=== PATIENT | female | born 1965 | race Caucasian/White ===

== ENCOUNTER → 2017-09-15 | Outpatient (CLI) | payer BC ==
--- NOTE | 2017-09-15 12:56 | ECHOS ---
STRESS ECHOCARDIOGRAM DATE OF SERVICE: 09/15/2017 INDICATIONS: Abnormal EKG. MEDICATIONS: Imitrex, Catapres, Topamax. BASELINE HEART RATE: 85 BASELINE BLOOD PRESSURE: 104/60 MAXIMUM HEART RATE: 157 MAXIMUM BLOOD PRESSURE: 156/82 85% MPHR: 142 100% MPHR: 167 METS: 11.1 MAXIMUM STAGE REACHED: IV TOTAL EXERCISE TIME: 9 minutes and 30 seconds CLINICAL INFORMATION: STRESS DATA: Pretesting physical examination showed a heart rate of 85. Pressure is 104/60 mmHg. Baseline EKG showed sinus rhythm. The patient exercised on the treadmill according to Td protocol for a total of 9 minutes and 30 seconds and achieved 11.1 METs. Max heart rate was 157, which is about 94% of maximum predicted heart rate. Maximum blood pressure was 156/82 mmHg. Clinically the patient did not have any symptoms of chest pain or discomfort during the testing or in the recovery time. The EKG did not show any significant ST or T-wave abnormalities consistent with ischemia. ECHOCARDIOGRAM IMAGES: On echocardiogram images from parasternal long axis view, parasternal short axis view, apical 4 chamber and apical 2 chamber view were obtained as the baseline images, at the peak of the heart rate, as well as on recovery and the echocardiogram images showed good augmentation in the left ventricular systolic function without any evidence of wall motion abnormalities consistent with ischemia. CONCLUSION: 1. Excellent exercise capacity. 2. Normal EKG in response to exercise. 3. Normal echocardiogram in response to exercise. 4. Essentially normal stress echocardiogram for the patient. MMODL / IJN: [id number] /
== END | disposition home or self-care (01) ==
LOC: RADNMMAIN 09:17
PROVIDERS: ATTEND Family Medicine
DX: R94.31 Abnormal electrocardiogram [ECG] [EKG] (principal)
CPT/HCPCS: 93017; 93350

== ENCOUNTER → 2018-08-24 | Outpatient (CLI) | payer BC ==
--- NOTE | 2018-08-31 14:57 | MM ---
Reason for exam: screening (asymptomatic). Last mammogram was performed 2 years and 4 months ago. History: Patient has history of endometrial cancer at age 31 and has history of bilateral breast cancer. Took hormonal contraceptives for 7 years beginning at age 36. MG 3D Screening Mammo W/Cad Bilateral CC and MLO view(s) were taken. Prior study comparison: April 10, 2016, bilateral MG 3d screening mammo w/cad. March 10, 2013, bilateral digital screening mammo w/CAD. The breast tissue is heterogeneously dense. This may lower the sensitivity of mammography. No suspicious abnormality. No significant changes when compared with prior studies. ASSESSMENT: Negative, BI-RAD 1 RECOMMENDATION: Routine screening mammogram of both breasts in 1 year.
== END ==
LOC: RADMAMWWP 06:50
PROVIDERS: ATTEND Family Medicine
DX: Z12.31 Encounter for screening mammogram for malignant neoplasm of breast (principal)
CPT/HCPCS: 77063; 77067

== ENCOUNTER 2020-02-02 12:36 | Emergency (ER) | payer OTHER, BC ==
[2020-02-02] MEDS ORDERED: DIPH,PERTUS(ACELL)TETVAC-LF 0.5 ML VIAL IM ONE (12:44)
[2020-02-02] MEDS ORDERED: SODIUM CHLORIDE 0.9% 500 ML 500 ML IV STA (12:44)
[2020-02-02 12:47] LABS: Glucose,Whole Blood 104 mg/dL (75-99)
[2020-02-02 12:57] LABS: Basophils % (A) 1 %; Eosinophils # (A) 0.2 k/uL (0-0.7); Eosinophils % (A) 4 %; HCT 41.4 % (34.0-46.0); HGB 13.9 gm/dL (11.4-16.0); Lymphocytes # (A) 1.5 k/uL (1.0-4.8); Lymphocytes % (A) 24 %; MCH 33.6 pg (25.0-35.0); MCHC 33.5 g/dL (31.0-37.0); MCV 100.6 fL (80.0-100.0); Mean Platelet Volume 7.6; Monocytes # (A) 0.4 k/uL (0-1.0); Monocytes % (A) 6 %; Neutrophils # (A) 3.9 k/uL (1.3-7.7); Neutrophils % (A) 63 %; Platelet Count 293 k/uL (150-450); RBC 4.12 m/uL (3.80-5.40); RDW 11.9 % (11.5-15.5); WBC 6.1 k/uL (3.8-10.6)
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
--- NOTE | 2020-02-02 13:10 | XR ---
AP pelvis HISTORY: Trauma and pain Single frontal view of the pelvis. Bone mineralization is reduced. Joint spaces and alignment are within normal limits. Fallopian tubal ligation clips are present in the pelvis. IMPRESSION: No fracture or dislocation.
[2020-02-02 13:12] LABS: ALT 19 U/L (4-34); AST 34 U/L (14-36); African American GFR (CKD) 82 (>60 ml/min/1.73 sqM); Alcohol <10 mg/dL; Alkaline Phosphatase 53 U/L (38-126); Amylase 56 U/L (30-110); Anion Gap 4 mmol/L; Blood Urea Nitrogen 20 mg/dL (7-17); Calcium 9.2 mg/dL (8.4-10.2); Carbon Dioxide 27 mmol/L (22-30); Chloride 108 mmol/L (98-107); Glucose 105 mg/dL (74-99); Non-African American GFR(CKD) 71 (>60 ml/min/1.73 sqM); Potassium 4.1 mmol/L (3.5-5.1); Sodium 139 mmol/L (137-145); Total Bilirubin 0.4 mg/dL (0.2-1.3); Total Protein 6.6 g/dL (6.3-8.2)
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
[2020-02-02 13:21] VITALS: BP 152/100
[2020-02-02 13:21] LABS: Creatine Kinase 207 U/L (30-135)
[2020-02-02 13:22] LABS: Partial Thromboplastin Time 22.1 sec (22.0-30.0); Prothrombin Time 10.1 sec (9.0-12.0)
[2020-02-02 13:33] VITALS: PULSE 96; RESP 13; TEMP 98.6
[2020-02-02 13:34] LABS: Creatine Kinase MB 3.3 ng/mL (0.0-2.4); Troponin I <0.012 ng/mL (0.000-0.034)
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
[2020-02-02 14:23] LABS: Appearance,Urine Clear (Clear); Bilirubin,Urine Negative (Negative); Blood,Urine Negative (Negative); Color,Urine Light Yellow; Glucose,Urine (UA) Negative (Negative); Ketones,Urine Negative (Negative); Leukocyte Esterase,Urine Negative (Negative); Nitrite,Urine Negative (Negative); Protein,Urine Negative (Negative); Specific Gravity,Urine 1.033 (1.001-1.035); Urobilinogen,Urine <2.0 mg/dL (<2.0)
[2020-02-02 14:39] LABS: Amphetamine Screen,Urine Not Detected (NotDetected); Barbiturate Screen,Urine Not Detected (NotDetected); Benzodiazepines Screen,Urine Not Detected (NotDetected); Cocaine Screen,Urine Not Detected (NotDetected); Methadone Screen, Urine Not Detected (NotDetected); Opiate Screen,Urine Not Detected (NotDetected); Oxycodone Screen, Urine Not Detected (NotDetected); Phencyclidine Screen,Urine Not Detected (NotDetected); Tricyclic Antidepressant,Urine Not Detected (NotDetected); Urn Cannabinoid Scrn Not Detected (NotDetected)
== END 2020-02-02 14:42 | disposition home or self-care (01) ==
LOC: EC 12:36
DX: S80.11XA Contusion of right lower leg, initial encounter (principal); V69.49XA Driver of heavy transport vehicle injured in collision with other motor vehicles in traffic accident, initial encounter; Y93.89 Activity, other specified
CPT/HCPCS: 36415; 93005; 86900; 86901; 80053; 82150; 82550; 82553; 83605; 83690; 84484; 85025; 85610; 85730; 86850; 81003; 80306; 80320; 72170; 71045; 72125; 70450; 71260; 74177; 99285; Q9967

== ENCOUNTER → 2020-02-29 | Outpatient (CLI) | payer BC | END | disposition home or self-care (01) | LOC: LABWHC1 13:50 | PROVIDERS: ATTEND Family Medicine | DX: Z20.828 Contact with and (suspected) exposure to other viral communicable diseases (principal) | CPT/HCPCS: U0003; C9803 ==

== ENCOUNTER → 2020-07-24 | Outpatient (CLI) | payer BC | END | disposition home or self-care (01) | LOC: LABWHC1 13:44 | PROVIDERS: ATTEND Nurse Practitioner Family | DX: Z20.828 Contact with and (suspected) exposure to other viral communicable diseases (principal) | CPT/HCPCS: U0003; C9803 ==

== ENCOUNTER → 2021-01-18 | Outpatient (CLI) | payer BC ==
--- NOTE | 2021-01-18 11:18 | MM ---
Reason for exam: screening (asymptomatic). Last mammogram was performed 2 years and 5 months ago. History: Patient has history of endometrial cancer at age 31 and has history of bilateral breast cancer. Took hormonal contraceptives for 7 years beginning at age 36. Physical Findings: A clinical breast exam by your physician is recommended on an annual basis and results should be correlated with mammographic findings. MG Screening Mammo w CAD Bilateral CC and MLO view(s) were taken. Prior study comparison: August 24, 2018, bilateral MG 3d screening mammo w/cad. April 10, 2016, bilateral MG 3d screening mammo w/cad. There are scattered fibroglandular densities. There is no discrete abnormality. ASSESSMENT: Negative, BI-RAD 1 RECOMMENDATION: Routine screening mammogram of both breasts in 1 year.
== END | disposition home or self-care (01) ==
LOC: RADMAMWWP 07:36
PROVIDERS: ATTEND Family Medicine
DX: Z12.31 Encounter for screening mammogram for malignant neoplasm of breast (principal); Z85.3 Personal history of malignant neoplasm of breast
CPT/HCPCS: 77067

== ENCOUNTER → 2022-08-21 | Outpatient (CLI) | payer BC ==
--- NOTE | 2022-08-21 12:05 | XR ---
EXAMINATION TYPE: XR toes LT DATE OF EXAM: 08/21/2022 COMPARISON: NONE HISTORY: Pain TECHNIQUE: 3 views submitted FINDINGS: There is a displaced comminuted intra-articular fracture of proximal phalanx fourth digit. Hammertoe deformities are seen in remaining osseous structures intact. IMPRESSION: 1. Displaced intra-articular fracture proximal phalanx fourth digit.
== END | disposition home or self-care (01) ==
LOC: RADXRMAIN 11:35
PROVIDERS: ATTEND Family Medicine
DX: S62.615A Displaced fracture of proximal phalanx of left ring finger, initial encounter for closed fracture (principal); M79.675 Pain in left toe(s)

== ENCOUNTER → 2024-11-08 | Outpatient (CLI) | payer BC ==
--- NOTE | 2024-11-08 10:02 | MM ---
Reason for Exam: Screening (asymptomatic). Last mammogram was performed 3 year(s) and 9 month(s) ago. Patient History: Menarche at age 10. First Full-Term at age 20. Endometrial cancer, age 31. Hormonal Contraceptives, starting at age 36 for 7 years. Risk Values: Torrie 5 year model risk: 1.4%. NCI Lifetime model risk: 7.2%. Prior Study Comparison: 04/10/2016 Bilateral Screening Mammogram, [facility]. 08/24/2018 Bilateral Screening Mammogram, [facility]. 01/18/2021 Bilateral Screening Mammogram, [facility]. Tissue Density: There are scattered areas of fibroglandular density. Findings: Analyzed By CAD. There is no suspicious group of microcalcifications or new suspicious mass in either breast. Overall Assessment: Benign, BI-RAD 2 Management: Screening Mammogram of both breasts in 1 year. . Patient should continue monthly self-breast exams. A clinical breast exam by your physician is recommended on an annual basis. This exam should not preclude additional follow-up of suspicious palpable abnormalities. Note on Torrie scores and lifetime risk: 1. A Torrie score greater than 3% is considered moderate risk. If this is the case, consider specialist referral to assess eligibility for a risk reducing agent. 2. If overall lifetime risk for the development of breast cancer is 20% or higher, the patient may qualify for future screening with alternating mammogram and breast MRI. [facility], , 11/08/2024 9:58 AM. Electronically signed and approved by: Milton Wood M.D. Radiologis
== END | disposition home or self-care (01) ==
LOC: RADMAMWWP 08:51
PROVIDERS: ATTEND Family Medicine
DX: Z12.31 Encounter for screening mammogram for malignant neoplasm of breast (principal); R92.323 Mammographic fibroglandular density, bilateral breasts; Z92.0 Personal history of contraception
CPT/HCPCS: 77067

== ENCOUNTER → 2024-12-22 | Outpatient (CLI) | payer BC ==
--- NOTE | 2024-12-22 13:39 | CT ---
EXAMINATION TYPE: CT chest w con CT DLP: 310 mGycm, Automated exposure control for dose reduction was used. DATE OF EXAM: 12/22/2024 11:03 AM COMPARISON: CT chest abdomen pelvis 02/02/2020 CLINICAL INDICATION:Female, 59 years old with history of J44.89 COPD; PHH, COPD and cough. TECHNIQUE: Multiple axial images were obtained through the chest following the administration of 100 cc of Isovue 300. . Coronal and sagittal reformats reviewed. FINDINGS: LUNGS/ PLEURA: No pleural effusion, pneumothorax, focal consolidation. Minimal dependent bibasilar maloney bsegmental atelectasis. Mild centrilobular emphysematous changes. Stable left upper lobe 4 mm groundg lass pulmonary nodule (series 4, image 17). Consider benign due to stability from 2019. No follow-up recommended. No new or enlarging pulmonary nodules. AIRWAY: Patent and unremarkable.. HEART: Size within normal limits. No pericardial effusion. No significant coronary artery calcificati ons. MEDIASTINUM: No evidence of adenopathy. VASCULATURE: No aortic aneurysm. MUSCULOSKELETAL: No acute osseous abnormalities SOFT TISSUES/LYMPH NODES: Unremarkable. LOWER NECK: No significant findings. UPPER ABDOMEN: Few stable scattered subcentimeter hypodense foci within the liver which are too small to characterize but likely represent cysts and/or hemangiomas. Increased size of left renal superior pole 5 cm cyst with thin septation, previously 4 cm. Tiny hiatal hernia. IMPRESSION: 1. No acute thoracic process. 2. Benign left upper lobe 4 mm pulmonary groundglass nodule. Consider benign due to stability from 20 20. No new or enlarging pulmonary nodules. 3. Increased size of left renal superior pole 5 cm cyst with thin septation, previously 4 cm. Recomme nd further evaluation with ultrasound. [facility], , 12/22/2024 1:37 PM
== END | disposition home or self-care (01) ==
LOC: RADCTMAIN 10:19
PROVIDERS: ATTEND Internal Medicine Critical Care Medicine
DX: J44.89 Other specified chronic obstructive pulmonary disease (principal); R91.1 Solitary pulmonary nodule; N28.1 Cyst of kidney, acquired
CPT/HCPCS: 71260; Q9967

== ENCOUNTER 2025-02-22 12:34 | Day surgery (SDC) | payer BC ==
[~2025-02-22 12:34] MED LIST: LACTATED RINGERS 1,000 ML IV SCH
[2025-02-22 12:56] VITALS: TEMP 96.1
[2025-02-22] MEDS: IV FLUID CONTINUATION 1,000 ML IV ONE (13:04)
[2025-02-22] MEDS: LACTATED RINGERS 1,000 ML IV SCH (13:05)
[2025-02-22 13:07] LABS: Glucose,Whole Blood 85 mg/dL (70-110)
[2025-02-22] MEDS: ATROPINE SULFATE 0.4 MG/ML 1 ML VIAL IM ONE (13:08)
[2025-02-22] MEDS ORDERED: LIDOCAINE 1% INJ 10MG/ML (20 ML MDV) ONE (13:14)
[2025-02-22] MEDS ORDERED: PROPOFOL 10 MG/ML 20 ML VIAL IV ONE (13:14)
[2025-02-22] MEDS: LIDOCAINE 2% INJ 20 MG/ML INTRATRACH ONE (13:45)
[2025-02-22] MEDS: IPRATROPIUM-ALBUTEROL 3 ML NEB INHALATION PRN (14:02)
--- NOTE | 2025-02-22 14:39 | OP ---
OPERATIVE REPORT DATE OF SERVICE : PULMONARY/CRITICAL CARE PROCEDURE NOTE PROCEDURES: Bronchoscopy, airway examination, therapeutic lavage, BAL right middle lobe. PREOPERATIVE DIAGNOSIS: Chronic cough. POSTOPERATIVE DIAGNOSIS: Chronic cough. FIRST CHARGE ACCOUNT CLERK: Dr. Alice Argueta. DESCRIPTION OF PROCEDURE: Anesthesia provided monitored anesthesia care. The patient's procedure took place in room #1, [facility]. There was informed consent and universal timeout. After the patient was adequately sedated and being fully monitored, the bronchoscope was inserted through the right nostril. It passed through the right nasopharynx into the oropharynx. The hypopharynx was identified and topicalized. The hypopharyngeal structures, including anterior commissure, true cords, false cords, arytenoids, piriform sinuses, right and left, vallecula, epiglottis, all appeared normal. The glottic opening was topicalized, the bronchoscope was pushed through the glottic opening into the trachea. There were thick secretions noted throughout the trachea. They were suctioned with some difficulty. Tracheal natasha was sharp. The right and left mainstem were topicalized. The right upper lobe and its 3 segments, right middle lobe and its 2 segments, right lower lobe and its 5 segments, left upper lobe proper and its 2 segments, the lingula and its 2 segments, the left lower lobe and its 4 segments, all had similar findings of diffuse airway erythema and hyperemia. I would grade it as being moderate in severity. There was some vascular engorgement and some mucosal friability. There were thick purulent looking secretions noted throughout. They were noticed in both lungs, equally. They were suctioned with the aid of saline lavage. Next the bronchoscope was wedged into the right middle lobe. We did a formal BAL. A 30 mL of turbid fluid was recovered. It will be sent to the laboratory for analysis. Based on the findings today, I suspect her cough relates to some sort of infection. The bronchoscope was withdrawn. The patient will be recovered. No additional recommendations are made. The patient will follow with me in the office. MMODL / IJN: [id number] /
[2025-02-22 14:50] VITALS: RESP 18
[2025-02-22 15:18] VITALS: BP 100/70; PULSE 88
[2025-02-23 12:49] LABS: Appearance,BF Cloudy (Clear)
[2025-02-24 10:01] LABS: Nucleated Cells, Body Fluid 436 /UL
== END 2025-02-22 15:35 | disposition home or self-care (01) ==
LOC: ORWHC2ENDO 12:34
PROVIDERS: ATTEND Internal Medicine Critical Care Medicine
DX: J44.9 Chronic obstructive pulmonary disease, unspecified (principal); I10 Essential (primary) hypertension; E78.5 Hyperlipidemia, unspecified; F41.1 Generalized anxiety disorder; G43.909 Migraine, unspecified, not intractable, without status migrainosus; Z79.51 Long term (current) use of inhaled steroids; Z79.899 Other long term (current) drug therapy; Z87.891 Personal history of nicotine dependence; Z86.16 Personal history of COVID-19; Z88.8 Allergy status to other drugs, medicaments and biological substances
CPT/HCPCS: 89050; 87070; 87205; 87116; 87102; 87206; 31624; J0461; J2003 ×2; J2704; 88108; 88305

== ENCOUNTER → 2025-03-15 | Outpatient (CLI) | payer BC ==
--- NOTE | 2025-03-15 10:36 | CT ---
EXAMINATION TYPE: CT brain wo/w con DATE OF EXAM: 03/15/2025 10:22 AM COMPARISON: 02/02/2020 CLINICAL INDICATION: Female, 59 years old with history of J32.9,G44.221 CHRONIC TENSION-TYPE HEADACHE , INTRA, chronic headaches and sinus infections. TECHNIQUE:Unenhanced followed by contrast enhanced CT of the brain is submitted for evaluation. CT s can of the head is performed without and with IV Contrast, patient injected with 80ml mL of Isovue [address] DLP: 3435.6 mGycm, Automated exposure control for dose reduction was used. FINDINGS: The ventricles are midline. There is no evidence for intracranial hemorrhage or extra-axial collecti on. No mass effects are identified. Visualized bony calvarium is intact. Contrast is administered and no enhancing lesions are detected. No pathologic enhancement is identified. If symptoms persist consider MRI. There is moderate pansinusitis. IMPRESSION: Moderate pansinusitis. [facility], , 03/15/2025 10:33 AM
--- NOTE | 2025-03-15 11:04 | CT ---
EXAMINATION TYPE: CT facial bones wo/w con DATE OF EXAM: 03/15/2025 COMPARISON: None CLINICAL INDICATION: Female, 59 years old with history of J32.9,G44.221 CHRONIC TENSION-TYPE HEADACHE , INTRA; PHH, chronic headaches and sinus infections. TECHNIQUE: CT scan of the facial bones is performed without and with IV Contrast, patient injected with 80ml mL of Isovue 300. CT DLP: 3435.[address] CTDI: mGy Automated exposure control for dose reduction was used. TECHNIQUE: CT scan of the sinuses is performed without contrast, axial images are obtained, coronal r eformatted images are also reviewed. FINDINGS: Near-complete opacification of the maxillary sinusitis with obstruction of the right ostiom eatal unit and partial obstruction suggested of the left ostiomeatal unit. There is mild mucosal thic kening involving ethmoid air cells. Moderate opacification of the sphenoid sinus. The frontal sinuses are hypoaerated. Nasal septum is mildly deviated from right to left. No enhancing lesion or bony mac tructive process present. IMPRESSION: Changes of chronic sinusitis as outlined above.. [facility], , 03/15/2025 11:02 AM
== END | disposition home or self-care (01) ==
LOC: RADCTMAIN 09:41
PROVIDERS: ATTEND Psychiatry & Neurology Neurology
DX: G44.221 Chronic tension-type headache, intractable (principal); J32.4 Chronic pansinusitis
CPT/HCPCS: 70488; 70470; Q9967